=== PATIENT | male | born 1990 | race Caucasian/White ===

== ENCOUNTER 2018-01-08 11:17 | Emergency (ER) | payer BC, OTHER ==
[~2018-01-08] VITALS: Ht 172.7 cm; Wt 68.0 kg
[~2018-01-08 11:17] MED LIST: BACTRIM DS TAB1 EACH PO; CIPROFLOXACIN500 M1 PO; NORCO 5-325 TA1 EACH PO
[2018-01-08 11:22] VITALS: BP 137/76
[2018-01-08] MEDS ORDERED: NORCO 5-325 TA1 EACH PO (11:32)
[2018-01-08] MEDS ORDERED: CIPROFLOXACIN500 M1 PO (11:32)
== END 2018-01-08 11:43 | disposition home or self-care (01) ==
LOC: M.ERS 11:17
DX: N45.1 Epididymitis (principal)

== ENCOUNTER 2018-03-28 11:59 | Emergency (ER) | payer BC, OTHER ==
[~2018-03-28] VITALS: Ht 170.2 cm; Wt 65.8 kg
[2018-03-28] MEDS ORDERED: BACTRIM DS TAB1 EACH PO (12:21)
[2018-03-28] MEDS ORDERED: BACTROBAN NASAL1 GM TOP (12:21)
[2018-03-28] MEDS ORDERED: IBUPROFEN 800800 M1 PO (12:21)
[2018-03-28 12:28] VITALS: BP 146/78
== END 2018-03-28 12:28 | disposition home or self-care (01) ==
LOC: M.ERS 11:59
DX: L03.211 Cellulitis of face (principal); Z90.49 Acquired absence of other specified parts of digestive tract